=== PATIENT | female | born 1940 | race Caucasian/White ===

== ENCOUNTER 2018-03-04 06:41 | Emergency (ER) | payer MEDICARE, OTHER ==
[~2018-03-04] VITALS: Ht 160 cm; Wt 82.6 kg
[2018-03-04 06:45] VITALS: BP 139/91
--- NOTE | 2018-03-04 06:57 | NUR ---
pt stated we can only get bp on forearm with manual bp only. educated pt we got automatic bp in triage. pt refused to be placed on the monitor. rn notified.
--- NOTE | 2018-03-04 07:05 | NUR ---
Patient states does not want to wait any longer. Left without being seen.
== END 2018-03-04 07:06 | disposition left against medical advice (07) ==
LOC: ER 06:42
DX: M25.572 Pain in left ankle and joints of left foot (principal); Z53.21 Procedure and treatment not carried out due to patient leaving prior to being seen by health care provider